=== PATIENT | male | born 2000 | race Two or more races ===

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

== ENCOUNTER 2024-07-06 16:24 | Emergency (ER) | payer MEDICAID ==
[~2024-07-06] VITALS: Ht 157.5 cm; Wt 81.6 kg
[2024-07-06 16:31] VITALS: BP 134/77; TEMP 98.4
[2024-07-06] MEDS ORDERED: KETOROLAC TROMETHAMINE INJ 30 MG/ML VIAL ONE (17:39)
[2024-07-06] MEDS: KETOROLAC TROMETHAMINE INJ 30 MG/ML VIAL IM ONE (17:47)
[2024-07-06 18:05] VITALS: O2SAT 99
== END 2024-07-06 18:07 | disposition home or self-care (01) ==
LOC: ER 16:34
DX: R22.0 Localized swelling, mass and lump, head (principal); F17.200 Nicotine dependence, unspecified, uncomplicated
CPT/HCPCS: 99283; 96372; J1885

== ENCOUNTER 2024-09-22 05:51 | Emergency (ER) | payer SELFPAY ==
[~2024-09-22] VITALS: Ht 157.5 cm; Wt 79.4 kg
[2024-09-22] MEDS ORDERED: ONDANSETRON HCL/PF 4 MG/2 ML VIAL ONE (06:17)
[2024-09-22] MEDS ORDERED: MORPHINE SULFATE INJ 4 MG/ML DISP.SYRIN ONE (06:17)
[2024-09-22] MEDS: MORPHINE SULFATE INJ 2 MG/ML DISP.SYRIN IV ONE (06:18)
[2024-09-22] MEDS: ONDANSETRON HCL/PF 4 MG/2 ML VIAL IVP ONE (06:18)
[2024-09-22] MEDS ORDERED: FENTANYL PF 100MCG/2ML AMPUL ONE (07:29)
[2024-09-22] MEDS: FENTANYL PF 100MCG/2ML AMPUL IV ONE (07:30)
[2024-09-22 09:19] LABS: BASOPHILS # (AUTO) 0.1 K/uL (0.0-0.2); BASOPHILS % (AUTO) 0.4 % (0.0-2.0); EOSINOPHILS % (AUTO) 0.4 % (0.0-6.0); HEMATOCRIT 43 % (39-51); HEMOGLOBIN 14.5 g/dL (13.5-17.5); LYMPHOCYTES # (AUTO) 2.7 K/uL (0.8-4.8); LYMPHOCYTES % (AUTO) 22.6 % (20.0-44.0); MEAN CORPUSCULAR HEMOGLOBIN 30 PG (26.0-33.0); MEAN CORPUSCULAR HGB CONC 34 g/dl (31.0-36.0); MEAN CORPUSCULAR VOLUME 88 fL (80-96); MONOCYTES # (AUTO) 0.9 K/uL (0.1-1.30); MONOCYTES % (AUTO) 7.3 % (2.0-12.0); NEUTROPHILS # (AUTO) 8.1 K/uL (1.8-8.9); NEUTROPHILS % (AUTO) 69.3 % (43.0-81.0); PLATELET COUNT (AUTO) 359 K/uL (150-450); RED BLOOD CELL COUNT(AUTO) 4.94 MIL/uL (4.5-6.0); RED CELL DISTRIBUTION WIDTH 13.2 % (11.5-15.0); WHITE BLOOD COUNT (AUTO) 11.7 K/uL (4.3-11.0)
[2024-09-22] MEDS ORDERED: IBUP-1955 PO (09:24)
[2024-09-22] MEDS ORDERED: HYDR-4303 PO (09:24)
[2024-09-22 09:29] LABS: CALCIUM, SERUM 8.8 mg/dL (8.5-10.1); CREATININE 0.7 mg/dL (0.6-1.3); POTASSIUM 3.7 mmol/L (3.5-5.1)
[2024-09-22 09:31] LABS: INR 0.99 (0.91-1.10); PARTIAL THROMBOPLASTIN TIME 24.9 SEC (24.3-34.3); PROTHROMBIN TIME 10.5 SECS (9.2-11.1)
[2024-09-22 10:26] VITALS: BP 141/81; TEMP 98; O2SAT 96
== END 2024-09-22 10:26 | disposition home or self-care (01) ==
LOC: ER 05:54
DX: S52.392A Other fracture of shaft of radius, left arm, initial encounter for closed fracture (principal); V00.131A Fall from skateboard, initial encounter; Y93.51 Activity, roller skating (inline) and skateboarding; Y92.89 Other specified places as the place of occurrence of the external cause; Y99.8 Other external cause status
CPT/HCPCS: 25505; 36415; 71045; 73080; 73090; 73110; 80048; 85025; 85730; 93005; 96374; 96375; 99285; J2270; J2405; J3010